=== PATIENT | female | born 1945 | race Caucasian/White ===

== ENCOUNTER 2018-11-12 19:09 | Inpatient (IN) | payer MEDICARE, OTHER ==
[~2018-11-12] VITALS: Ht 157.5 cm; Wt 54.4 kg
[2018-11-12] MEDS ORDERED: LORA0.5T PO (19:43)
[2018-11-12] MEDS ORDERED: FLUO-120 PO (19:43)
[2018-11-12] MEDS ORDERED: METO25TA6 PO (19:43)
[2018-11-12] MEDS ORDERED: PANT20TA3 PO (19:43)
[2018-11-12] MEDS ORDERED: HYDROCODONE/APAP 5-325MG TABLET ONE (21:07)
[2018-11-12] MEDS ORDERED: HYDROCODONE/APAP 5-325MG TABLET PO ONE (21:15)
[2018-11-12] MEDS ORDERED: MAG HYDROX/AL HYDROX/SIMETH 30 ML LIQUID UDC PO PRN (22:30)
[2018-11-13 07:30] VITALS: BP 139/61
[2018-11-13 16:00] VITALS: BP 135/53
[2018-11-13 20:00] VITALS: BP 155/76
[2018-11-13] MEDS ORDERED: FAMOTIDINE 20 MG TABLET PO SCH (21:00)
[2018-11-13] MEDS: DIVALPROEX 250 MG TABLET.DR PO SCH (21:09)
[2018-11-13] MEDS: QUETIAPINE FUMARATE 25 MG TABLET PO SCH (21:10)
[2018-11-14] MEDS: PANTOPRAZOLE SODIUM 40 MG TABLET.DR PO SCH (06:08)
[2018-11-14 07:30] VITALS: BP 123/63
[2018-11-14] MEDS: FLUOXETINE HCL 10 MG CAPSULE PO SCH (08:34)
[2018-11-14] MEDS: DIVALPROEX 250 MG TABLET.DR PO SCH ×2 (08:34→20:43)
[2018-11-14 16:10] VITALS: BP 137/62
[2018-11-14] MEDS ORDERED: NITROGLYCERIN 0.4 MG/TAB BOTTLE SL PRN (18:00)
[2018-11-14 20:00] VITALS: BP 135/61
[2018-11-14] MEDS: QUETIAPINE FUMARATE 25 MG TABLET PO SCH (20:43)
[2018-11-14] MEDS: ACETAMINOPHEN 325 MG TABLET PO PRN (23:57)
[2018-11-14] MEDS: TEMAZEPAM 7.5 MG CAPSULE PO PRN (23:58)
[2018-11-15] MEDS: PANTOPRAZOLE SODIUM 40 MG TABLET.DR PO SCH (06:32)
[2018-11-15 07:30] VITALS: BP 119/65
[2018-11-15] MEDS: DIVALPROEX 250 MG TABLET.DR PO SCH ×2 (08:20→21:54)
[2018-11-15] MEDS: FLUOXETINE HCL 10 MG CAPSULE PO SCH (08:20)
[2018-11-15] MEDS: ACETAMINOPHEN 325 MG TABLET PO PRN ×2 (09:43→22:24)
[2018-11-15] MEDS: ISOSORBIDE MONONITRATE 30 MG TAB.SR.24H PO SCH (15:30)
[2018-11-15 16:00] VITALS: BP 146/63
[2018-11-15] MEDS: ASPIRIN 81 MG TAB.CHEW PO SCH (16:33)
[2018-11-15 20:25] VITALS: BP 147/54
[2018-11-15] MEDS: ATORVASTATIN 20 MG TABLET PO SCH (21:54)
[2018-11-15] MEDS: QUETIAPINE FUMARATE 25 MG TABLET PO SCH (21:54)
[2018-11-16] MEDS: PANTOPRAZOLE SODIUM 40 MG TABLET.DR PO SCH (06:31)
[2018-11-16 07:30] VITALS: BP 115/52
[2018-11-16] MEDS: ISOSORBIDE MONONITRATE 30 MG TAB.SR.24H PO SCH (08:17)
[2018-11-16] MEDS: ASPIRIN 81 MG TAB.CHEW PO SCH (08:17)
[2018-11-16] MEDS: DIVALPROEX 250 MG TABLET.DR PO SCH ×2 (08:17→20:46)
[2018-11-16] MEDS: FLUOXETINE HCL 10 MG CAPSULE PO SCH (08:23)
[2018-11-16] MEDS: ACETAMINOPHEN 325 MG TABLET PO PRN ×3 (08:37→20:55)
[2018-11-16 16:11] VITALS: BP 118/54
[2018-11-16] MEDS: QUETIAPINE FUMARATE 25 MG TABLET PO SCH (20:46)
[2018-11-16] MEDS: ATORVASTATIN 20 MG TABLET PO SCH (20:46)
[2018-11-16 21:15] VITALS: BP 139/72
[2018-11-17] MEDS: PANTOPRAZOLE SODIUM 40 MG TABLET.DR PO SCH (06:21)
[2018-11-17] MEDS: ACETAMINOPHEN 325 MG TABLET PO PRN ×2 (06:24→20:15)
[2018-11-17 07:30] VITALS: BP 149/51
[2018-11-17] MEDS: DIVALPROEX 250 MG TABLET.DR PO SCH ×2 (08:00→21:02)
[2018-11-17] MEDS: ASPIRIN 81 MG TAB.CHEW PO SCH (08:00)
[2018-11-17] MEDS: FLUOXETINE HCL 10 MG CAPSULE PO SCH (08:01)
[2018-11-17] MEDS: ISOSORBIDE MONONITRATE 30 MG TAB.SR.24H PO SCH (08:01)
[2018-11-17] MEDS: LIDOCAINE 5% PATCH TD SCH (14:31)
[2018-11-17 16:00] VITALS: BP 144/68
[2018-11-17 20:44] VITALS: BP 141/71
[2018-11-17] MEDS: QUETIAPINE FUMARATE 25 MG TABLET PO SCH (21:02)
[2018-11-17] MEDS: ATORVASTATIN 20 MG TABLET PO SCH (21:02)
[2018-11-17] MEDS: MAGNESIUM HYDROXIDE 30 ML LIQUID UDC PO PRN (22:20)
[2018-11-18] MEDS: PANTOPRAZOLE SODIUM 40 MG TABLET.DR PO SCH (06:31)
[2018-11-18 07:30] VITALS: BP 133/59
[2018-11-18] MEDS: DIVALPROEX 250 MG TABLET.DR PO SCH ×2 (08:39→20:19)
[2018-11-18] MEDS: ASPIRIN 81 MG TAB.CHEW PO SCH (08:39)
[2018-11-18] MEDS: LIDOCAINE 5% PATCH TD SCH (08:39)
[2018-11-18] MEDS: ISOSORBIDE MONONITRATE 30 MG TAB.SR.24H PO SCH (08:40)
[2018-11-18] MEDS: ACETAMINOPHEN 325 MG TABLET PO PRN (12:40)
[2018-11-18] MEDS: LORAZEPAM 0.5 MG TABLET PO PRN (15:15)
[2018-11-18 16:01] VITALS: BP 132/68
[2018-11-18 20:00] VITALS: BP 129/60
[2018-11-18] MEDS: ATORVASTATIN 20 MG TABLET PO SCH (20:19)
[2018-11-18] MEDS: QUETIAPINE FUMARATE 25 MG TABLET PO SCH (20:19)
[2018-11-19] MEDS: PANTOPRAZOLE SODIUM 40 MG TABLET.DR PO SCH (06:29)
[2018-11-19 07:30] VITALS: BP 129/59
[2018-11-19] MEDS: LORAZEPAM 0.5 MG TABLET PO PRN (08:32)
[2018-11-19] MEDS: ASPIRIN 81 MG TAB.CHEW PO SCH (08:38)
[2018-11-19] MEDS: LIDOCAINE 5% PATCH TD SCH (08:39)
[2018-11-19] MEDS: ISOSORBIDE MONONITRATE 30 MG TAB.SR.24H PO SCH (08:39)
[2018-11-19] MEDS: DIVALPROEX 250 MG TABLET.DR PO SCH ×2 (08:39→20:52)
[2018-11-19 15:12] VITALS: BP 116/54
[2018-11-19 19:56] VITALS: BP 117/60
[2018-11-19] MEDS: ATORVASTATIN 20 MG TABLET PO SCH (20:52)
[2018-11-19] MEDS: QUETIAPINE FUMARATE 25 MG TABLET PO SCH (20:52)
[2018-11-19] MEDS: MAGNESIUM HYDROXIDE 30 ML LIQUID UDC PO PRN (21:29)
[2018-11-20] MEDS: LORAZEPAM 0.5 MG TABLET PO PRN ×3 (00:21→15:40)
[2018-11-20] MEDS: PANTOPRAZOLE SODIUM 40 MG TABLET.DR PO SCH (06:18)
[2018-11-20 08:03] VITALS: BP 94/44
[2018-11-20] MEDS: DIVALPROEX 250 MG TABLET.DR PO SCH ×2 (08:57→20:23)
[2018-11-20] MEDS: ASPIRIN 81 MG TAB.CHEW PO SCH (08:57)
[2018-11-20] MEDS: ISOSORBIDE MONONITRATE 30 MG TAB.SR.24H PO SCH (08:59)
[2018-11-20] MEDS: LIDOCAINE 5% PATCH TD SCH (08:59)
[2018-11-20 12:01] VITALS: BP 107/47
[2018-11-20 15:11] VITALS: BP 118/46
[2018-11-20] MEDS: ATORVASTATIN 20 MG TABLET PO SCH (20:23)
[2018-11-20] MEDS: QUETIAPINE FUMARATE 25 MG TABLET PO SCH (20:23)
[2018-11-20 20:33] VITALS: BP 112/60
[2018-11-20] MEDS: TEMAZEPAM 7.5 MG CAPSULE PO PRN (22:51)
[2018-11-21] MEDS ORDERED: ACETAMINOPHEN 325 MG TABLET ONE (01:35)
[2018-11-21] MEDS: PANTOPRAZOLE SODIUM 40 MG TABLET.DR PO SCH (06:19)
[2018-11-21 07:30] VITALS: BP 108/56
[2018-11-21] MEDS: ASPIRIN 81 MG TAB.CHEW PO SCH (09:32)
[2018-11-21] MEDS: ACETAMINOPHEN 325 MG TABLET PO PRN (09:32)
[2018-11-21] MEDS: DIVALPROEX 250 MG TABLET.DR PO SCH ×2 (09:32→21:00)
[2018-11-21] MEDS: ISOSORBIDE MONONITRATE 30 MG TAB.SR.24H PO SCH (09:33)
[2018-11-21] MEDS: LIDOCAINE 5% PATCH TD SCH (09:33)
[2018-11-21] MEDS: LORAZEPAM 0.5 MG TABLET PO PRN ×2 (11:26→22:21)
[2018-11-21 16:00] VITALS: BP 108/53
[2018-11-21 20:22] VITALS: BP 112/55
[2018-11-21] MEDS: ATORVASTATIN 20 MG TABLET PO SCH (21:00)
[2018-11-21] MEDS: QUETIAPINE FUMARATE 25 MG TABLET PO SCH (21:00)
[2018-11-21] MEDS: TEMAZEPAM 7.5 MG CAPSULE PO PRN (23:36)
[2018-11-22] MEDS: PANTOPRAZOLE SODIUM 40 MG TABLET.DR PO SCH (06:59)
[2018-11-22 07:30] VITALS: BP 102/45
[2018-11-22 07:55] LABS: CARBON DIOXIDE 29 mmol/L (21-32); CHLORIDE 107 mmol/L (98-107); GLUCOSE 98 mg/dL (74-106); UREA NITROGEN, BLOOD 25 mg/dL (7-18)
[2018-11-22 09:00] VITALS: BP 102/45
[2018-11-22] MEDS: ISOSORBIDE MONONITRATE 30 MG TAB.SR.24H PO SCH (09:00)
[2018-11-22] MEDS: ASPIRIN 81 MG TAB.CHEW PO SCH (09:11)
[2018-11-22] MEDS: DIVALPROEX 250 MG TABLET.DR PO SCH (09:11)
[2018-11-22] MEDS: LIDOCAINE 5% PATCH TD SCH (09:12)
== END 2018-11-22 15:00 | disposition home or self-care (01) | DRG 885 ==
LOC: ER 19:13 → GPS 22:19
PROVIDERS: ADMIT Psychiatry & Neurology Psychiatry; ATTEND Nurse Practitioner Acute Care
DX: F31.60 Bipolar disorder, current episode mixed, unspecified (principal); I10 Essential (primary) hypertension; K21.9 Gastro-esophageal reflux disease without esophagitis; I70.0 Atherosclerosis of aorta; T44.7X5A Adverse effect of beta-adrenoreceptor antagonists, initial encounter; Y92.89 Other specified places as the place of occurrence of the external cause; R00.1 Bradycardia, unspecified; R07.9 Chest pain, unspecified; M79.662 Pain in left lower leg; Z79.899 Other long term (current) drug therapy; Z91.5 Personal history of self-harm; Z85.038 Personal history of other malignant neoplasm of large intestine
CPT/HCPCS: 36415; 70030-TC; 71045; 80164; 93005; 93307; A4663; J3490